=== PATIENT | male | born 1990 | race Two or more races ===

== ENCOUNTER 2017-08-17 15:00 | Emergency (ER) | payer SELFPAY ==
--- NOTE | 2017-08-17 15:58 | ER Document Report ---
ED General - General Chief Complaint: Headache Stated Complaint: WEAKNESS Time Seen by Provider: 08/17/17 15:57 Notes: 19-year-old male to emergency department complaining of intermittent headaches and tension in his upper body. Patient states that he is under a lot of stress. Has a history of "pseudoseizures". Was taking Depakote but has not been taking it recently. Recently got in a relationship with a woman who has 2 small children. They have moved into his house. Patient is feeling like he is responsible for taking care of this family. This seems to be causing a lot of stress. Not real sure what to do. Denies any suicidal or homicidal ideation. No seizures recently but does describe some hyperventilatory syndromes with symptoms of carpopedal spasms and tingling in the fingers as well as around the lips and face. Denies any loss of consciousness. Does not have significant headache at this time. [employer] voice dictation system was used in the transcribing of this medical document. There may be contextual errors in the patch worker which are not actual representations of the patient's history of present illness, physical exam or medical treatment and decision making plans. TRAVEL OUTSIDE OF THE [place] IN LAST 30 DAYS: No - HPI Onset: Last week Onset/Duration: Gradual - Related Data Allergies/Adverse Reactions: No Known Allergies Allergy (Verified 08/17/17 15:41) Past Medical History - General Information source: Patient - Social History Smoking Status: Current Some Day Smoker Chew tobacco use (# tins/day): No Frequency of alcohol use: Occasional Drug Abuse: None Lives with: Friend Family History: Reviewed & Not Pertinent Patient has suicidal ideation: No Patient has homicidal ideation: No Neurological Medical History: Reports: Hx Seizures - pseudoseizure Renal/ Medical History: Denies: Hx Peritoneal Dialysis Review of Systems - Review of Systems Constitutional: No symptoms reported EENT: No symptoms reported Cardiovascular: No symptoms reported Respiratory: No symptoms reported Gastrointestinal: No symptoms reported Genitourinary: No symptoms reported Male Genitourinary: No symptoms reported Musculoskeletal: No symptoms reported Skin: No symptoms reported Hematologic/Lymphatic: No symptoms reported Neurological/Psychological: Seizure, Headaches, Numbness, Tingling Physical Exam - Vital signs Vitals: Temp Pulse Resp BP Pulse Ox 98.1 F 89 16 148/77 H 97 08/17/17 15:07 08/17/17 15:07 08/17/17 15:07 08/17/17 15:07 08/17/17 15:07 Interpretation: Normal - General General appearance: Appears well, Alert - HEENT Head: Normocephalic, Atraumatic Eyes: Normal Pupils: PERRL - Respiratory Respiratory status: No respiratory distress Chest status: Nontender Breath sounds: Normal Chest palpation: Normal - Cardiovascular Rhythm: Regular Heart sounds: Normal auscultation Murmur: No - Abdominal Inspection: Normal Distension: No distension Bowel sounds: Normal Tenderness: Nontender Organomegaly: No organomegaly - Back Back: Normal, Nontender - Extremities General upper extremity: Normal inspection, Nontender, Normal color, Normal ROM , Normal temperature General lower extremity: Normal inspection, Nontender, Normal color, Normal ROM , Normal temperature, Normal weight bearing. No: Rosalba's sign - Neurological Neuro grossly intact: Yes Cognition: Normal Orientation: AAOx4 Frederic Coma Scale Eye Opening: Spontaneous [place] Coma Scale Verbal: Oriented [place] Coma Scale Motor: Obeys Commands Frederic Coma Scale Total: 15 Speech: Normal Motor strength normal: LUE, RUE, LLE, RLE Sensory: Normal - Psychological Associated symptoms: Normal affect, Normal mood - Skin Skin Temperature: Warm Skin Moisture: Dry Skin Color: Normal Course - Re-evaluation Re-evalutation: 08/17/17 16:35 After a lengthy discussion with the patient it appears that his symptoms are mostly stress related and I have counseled him today regarding lifestyle changes. He is interested in restarting the Depakote. We will get some baseline labs on him at this time. Reassurance. More likely will be able to discharge shortly. 08/17/17 17:38 Laboratory 08/17/17 08/17/17 08/17/17 16:42 16:42 16:42 WBC 10.5 RBC 5.63 H Hgb 17.6 H Hct 51.0 MCV 91 MCH 31.2 MCHC 34.4 RDW 12.4 Plt Count 186 Seg Neutrophils % 64.3 Lymphocytes % 25.8 Monocytes % 7.5 Eosinophils % 1.8 Basophils % 0.6 Absolute Neutrophils 6.7 Absolute Lymphocytes 2.7 Absolute Monocytes 0.8 Absolute Eosinophils 0.2 Absolute Basophils 0.1 Sodium 146.8 H Potassium 4.6 Chloride 106 Carbon Dioxide 27 Anion Gap 14 BUN 14 Creatinine 1.04 Est GFR ( Amer) > 60 Est GFR (Non-Af Amer) > 60 Glucose 64 L Calcium 10.3 H Total Bilirubin 0.7 Direct Bilirubin 0.3 Neonat Total Bilirubin Not Reportable Neonat Direct Bilirubin Not Reportable Neonat Indirect Bili Not Reportable AST 40 ALT 57 Alkaline Phosphatase 58 Total Protein 7.9 Albumin 4.8 Urine Color YELLOW Urine Appearance CLEAR Urine pH 7.0 Ur Specific [place] 1.023 Urine Protein NEGATIVE Urine Glucose (UA) NEGATIVE Urine Ketones NEGATIVE Urine Blood NEGATIVE Urine Nitrite NEGATIVE Urine Bilirubin NEGATIVE Urine Urobilinogen 2.0 H Ur Leukocyte Esterase NEGATIVE Urine WBC (Auto) 0 Urine RBC (Auto) 0 Urine Mucus (Auto) RARE Urine Ascorbic Acid NEGATIVE Blood sugar was a little bit low but patient has not eaten and he is completely awake alert and in no acute distress. Have advised patient to follow-up with a counselor. Follow-up information for counseling has been provided. At this time will DC on some Topamax as he was on previously. - Vital Signs Vital signs: Temp Pulse Resp BP Pulse Ox 98.1 F 89 16 148/77 H 97 08/17/17 15:07 08/17/17 15:07 08/17/17 15:07 08/17/17 15:07 08/17/17 15:07 - Laboratory Result Diagrams: 08/17/17 16:42 08/17/17 16:42 Laboratory results interpreted by me: 08/17/17 08/17/17 08/17/17 16:42 16:42 16:42 RBC 5.63 H Hgb 17.6 H Sodium 146.8 H Glucose 64 L Calcium 10.3 H Urine Urobilinogen 2.0 H Discharge - Discharge Clinical Impression: Anxiety Condition: Good Disposition: HOME, SELF-CARE Instructions: Headache ([facility]), Hypoglycemia ([facility]), Anxiety ([facility]) Prescriptions: Divalproex Sodium [Depakote] 500 mg PO BID 30 Days #60 tablet.dr Referrals: [facility] [Provider Group] - Follow up as needed [facility] [Provider Group] - Follow up as needed MERT MONTOYA MD [NO LOCAL MD] - Follow up as needed
[2017-08-17 17:15] LABS: APPEARANCE,URINE CLEAR; BILIRUBIN,URINE NEGATIVE (NEGATIVE); COLOR,URINE YELLOW; GLUCOSE, URINE NEGATIVE (NEGATIVE); KETONES,URINE NEGATIVE (NEGATIVE); LEUKOCYTE ESTERASE,URINE NEGATIVE (NEGATIVE); NITRITE,URINE NEGATIVE (NEGATIVE); PROTEIN,URINE NEGATIVE (NEGATIVE); URINE SPECIFIC GRAVITY 1.023
[2017-08-17 17:17] LABS: ABSOLUTE BASOPHILS # (AUTO) 0.1 10^3/uL (0.0-0.2); ABSOLUTE EOSINOPHILS # (AUTO) 0.2 10^3/uL (0.0-0.6); ABSOLUTE LYMPHOCYTES (AUTO) 2.7 10^3/uL (0.5-4.7); ABSOLUTE MONOCYTES (AUTO) 0.8 10^3/uL (0.1-1.4); ABSOLUTE NEUT (AUTO) 6.7 10^3/uL (1.7-8.2); BASOPHILS % (AUTO) 0.6 % (0-2); EOSINOPHILS % (AUTO) 1.8 % (0-6); HEMOGLOBIN 17.6 g/dL (13.5-17.0); LYMPHOCYTES % (AUTO) 25.8 % (13-45); MEAN CORPUSCULAR HEMOGLOBIN 31.2 pg (27.0-33.4); MEAN CORPUSCULAR HGB CONC 34.4 g/dL (32.0-36.0); MEAN CORPUSCULAR VOLUME 91 fl (80-97); MONOCYTES % (AUTO) 7.5 % (3-13); PLATELET COUNT 186 10^3/uL (150-450); RED BLOOD COUNT 5.63 10^6/uL (4.35-5.55); RED CELL DISTRIBUTION WIDTH 12.4 % (11.5-14.0); SEGMENTED NEUTROPHILS % (AUTO) 64.3 % (42-78); TOTAL CELLS COUNTED % (AUTO) 100 %; WHITE BLOOD COUNT 10.5 10^3/uL (4.0-10.5)
[2017-08-17 17:33] LABS: ALANINE AMINOTRANSFERASE 57 U/L (21-72); ALBUMIN 4.8 g/dL (3.5-5.0); ALKALINE PHOSPHATASE 58 U/L (38-126); ANION GAP 14 (5-19); ASPARTATE AMINO TRANSFERASE 40 U/L (17-59); BILIRUBIN,DIRECT 0.3 mg/dL (0.0-0.4); BILIRUBIN,TOTAL 0.7 mg/dL (0.2-1.3); BLOOD UREA NITROGEN 14 mg/dL (7-20); CALCIUM 10.3 mg/dL (8.4-10.2); CARBON DIOXIDE 27 mmol/L (22-30); CHLORIDE 106 mmol/L (98-107); GLUCOSE 64 mg/dL (75-110); POTASSIUM 4.6 mmol/L (3.6-5.0); SODIUM 146.8 mmol/L (137-145); TOTAL PROTEIN 7.9 g/dL (6.3-8.2)
[2017-08-17 17:44] VITALS: BP 131/74
== END 2017-08-17 17:44 | disposition home or self-care (01) ==
LOC: EDBD 15:00 → ER 15:00
DX: F41.9 Anxiety disorder, unspecified (principal); R53.1 Weakness; R51 Headache; F17.200 Nicotine dependence, unspecified, uncomplicated; G40.909 Epilepsy, unspecified, not intractable, without status epilepticus
CPT/HCPCS: 36415; 80053; 81001; 85025; 99285

== ENCOUNTER 2017-09-12 01:48 | Emergency (ER) | payer SELFPAY ==
--- NOTE | 2017-09-12 03:50 | ER Document Report ---
ED GI/ - General Chief Complaint: Rectal Pain Stated Complaint: SIDE PAIN Time Seen by Provider: 09/12/17 03:49 Notes: The patient is a 27-year-old male who presents with 4 days of left rectal pain is worse with a bowel movement. He feels it tracking up to his left buttocks. He denies urinary symptoms, fevers, blood in his stool, history of rectal abscesses or difficulty walking. TRAVEL OUTSIDE OF THE [place] IN LAST 30 DAYS: No - Related Data Allergies/Adverse Reactions: No Known Allergies Allergy (Verified 08/17/17 15:41) Past Medical History - General Information source: Patient - Social History Smoking Status: Unknown if Ever Smoked Family History: Reviewed & Not Pertinent Neurological Medical History: Reports: Hx Seizures - pseudoseizure Renal/ Medical History: Denies: Hx Peritoneal Dialysis Review of Systems - Review of Systems Notes: REVIEW OF SYSTEMS: CONSTITUTIONAL: -fevers, -chills EENT: -eye pain, -difficulty swallowing, -nasal congestion CARDIOVASCULAR: -chest pain, -syncope. RESPIRATORY: -cough, -SOB GASTROINTESTINAL: +rectal pain, -abdominal pain, -nausea, -vomiting, -diarrhea GENITOURINARY: -dysuria, -hematuria MUSCULOSKELETAL: -back pain, -neck pain SKIN: -rash or skin lesions. HEMATOLOGIC: -easy bruising or bleeding. LYMPHATIC: -swollen, enlarged glands. NEUROLOGICAL: -altered mental status or loss of consciousness, -headache, - neurologic symptoms PSYCHIATRIC: -anxiety, -depression. ALL OTHER SYSTEMS REVIEWED AND NEGATIVE. Physical Exam - Vital signs Vitals: Temp Pulse Resp BP Pulse Ox 98.2 F 80 16 141/89 H 97 09/12/17 02:13 09/12/17 02:13 09/12/17 02:13 09/12/17 02:13 09/12/17 02:13 - Notes Notes: PHYSICAL EXAMINATION: GENERAL: Well-appearing, well-nourished and in no acute distress. HEAD: Atraumatic, normocephalic. EYES: Pupils equal round and reactive to light, extraocular movements intact, sclera anicteric, conjunctiva are normal. ENT: nares patent, oropharynx clear without exudates. Moist mucous membranes. NECK: Normal range of motion, supple without lymphadenopathy LUNGS: Breath sounds clear to auscultation bilaterally and equal. No wheezes rales or rhonchi. HEART: Regular rate and rhythm without murmurs ABDOMEN: Soft, nontender, normoactive bowel sounds. No guarding, no rebound. No masses appreciated. RECTAL: Tenderness of left rectum, no fluctuance felt or purulent drainage, no hemorrhoids. EXTREMITIES: Normal range of motion, no pitting or edema. No cyanosis. NEUROLOGICAL: Cranial nerves grossly intact. Normal speech, normal gait. Normal sensory and motor exams. PSYCH: Normal mood, normal affect. SKIN: Warm, Dry, normal turgor, no rashes or lesions noted. Course - Re-evaluation Re-evalutation: Concern for rectal abscess with increased pain and a feeling of swelling in his left posterior buttocks. However, his CT abdomen pelvis did not show any acute abnormalities. Rectal exam did not reveal any fluctuant masses or hemorrhoids. Instructed him about using stool softeners and following up with his primary care physician. - Vital Signs Vital signs: Temp Pulse Resp BP Pulse Ox 98.2 F 80 16 141/89 H 97 09/12/17 02:13 09/12/17 02:13 09/12/17 02:13 09/12/17 02:13 09/12/17 02:13 - Laboratory Result Diagrams: 09/12/17 04:05 09/12/17 04:05 Laboratory results interpreted by me: 09/12/17 09/12/17 04:05 04:05 WBC 10.9 H Hgb 17.2 H Sodium 147.6 H Carbon Dioxide 31 H - Diagnostic Test Radiology reviewed: Image reviewed, Reports reviewed Radiology results interpreted by me: CT A/P: NAD Discharge - Discharge Clinical Impression: Rectal pain Condition: Stable Disposition: HOME, SELF-CARE Additional Instructions: There is no evidence of a rectal abscess or any other acute abnormalities on your CAT scan. You may try Preparation H and stool softeners and follow-up with your primary care physician. Forms: Elevated Blood Pressure
[2017-09-12] MEDS ORDERED: KETOROLAC TROMETHAMINE INJ/PF 30 MG/1 ML SDV IV ONE (03:59)
[2017-09-12 04:24] LABS: ABSOLUTE EOSINOPHILS # (AUTO) 0.2 10^3/uL (0.0-0.6); ABSOLUTE LYMPHOCYTES (AUTO) 3.8 10^3/uL (0.5-4.7); ABSOLUTE MONOCYTES (AUTO) 0.6 10^3/uL (0.1-1.4); ABSOLUTE NEUT (AUTO) 6.2 10^3/uL (1.7-8.2); BASOPHILS % (AUTO) 0.3 % (0-2); EOSINOPHILS % (AUTO) 2.3 % (0-6); HEMATOCRIT 49.4 % (37.9-51.0); HEMOGLOBIN 17.2 g/dL (13.5-17.0); LYMPHOCYTES % (AUTO) 35.2 % (13-45); MEAN CORPUSCULAR HEMOGLOBIN 31.5 pg (27.0-33.4); MEAN CORPUSCULAR HGB CONC 34.7 g/dL (32.0-36.0); MEAN CORPUSCULAR VOLUME 91 fl (80-97); MONOCYTES % (AUTO) 5.8 % (3-13); PLATELET COUNT 161 10^3/uL (150-450); RED BLOOD COUNT 5.46 10^6/uL (4.35-5.55); RED CELL DISTRIBUTION WIDTH 12.5 % (11.5-14.0); SEGMENTED NEUTROPHILS % (AUTO) 56.4 % (42-78); TOTAL CELLS COUNTED % (AUTO) 100 %; WHITE BLOOD COUNT 10.9 10^3/uL (4.0-10.5)
[2017-09-12 04:25] LABS: ALANINE AMINOTRANSFERASE 35 U/L (21-72); ALBUMIN 4.5 g/dL (3.5-5.0); ALKALINE PHOSPHATASE 57 U/L (38-126); ANION GAP 14 (5-19); ASPARTATE AMINO TRANSFERASE 33 U/L (17-59); BILIRUBIN,DIRECT 0.4 mg/dL (0.0-0.4); BILIRUBIN,TOTAL 0.4 mg/dL (0.2-1.3); BLOOD UREA NITROGEN 16 mg/dL (7-20); CALCIUM 9.8 mg/dL (8.4-10.2); CARBON DIOXIDE 31 mmol/L (22-30); CHLORIDE 103 mmol/L (98-107); GLUCOSE 85 mg/dL (75-110); POTASSIUM 4.3 mmol/L (3.6-5.0); SODIUM 147.6 mmol/L (137-145); TOTAL PROTEIN 7.4 g/dL (6.3-8.2)
--- NOTE | 2017-09-12 04:34 | RADIOLOGY REPORT (SQ) ---
EXAM DESCRIPTION: CT ABDOMEN PELVIS WITH IV CONTRAST COMPLETED DATE/TME: 09/12/2017 03:50 CLINICAL HISTORY: 27 years Male, rectal pain Comparison: None. Technique: IV contrast. Coronal and sagittal reformat. This exam was performed according to our departmental dose-optimization program, which includes automated exposure control, adjustment of the mA and/or kV according to patient size and/or use of iterative reconstruction technique.[facility]: Dose Right [facility]: CareDose [facility]: Dose Right [facility]: Teradose 4D [facility]: [employer] LIMITATIONS: None Findings: No ascites. CT appearance of the rectum and perirectal tissues is within normal limits, as queried. Normal appendix. Inferior thorax, liver, gallbladder, pancreas, spleen, adrenals, renal system, gastrointestinal tract, pelvic organs, lymphatics, vasculature, and musculoskeleton appear otherwise unremarkable. IMPRESSION: No acute findings.
[2017-09-12 05:27] VITALS: BP 126/77
== END 2017-09-12 05:27 | disposition home or self-care (01) ==
LOC: ER 01:48
DX: K62.89 Other specified diseases of anus and rectum (principal)
CPT/HCPCS: 99284; 96374; 36415; 85025; 80053; 74177; J1885